=== PATIENT | male | born 1965 | race African-American/Black ===

== ENCOUNTER 2016-12-09 20:56 | Inpatient (IN) ==
--- NOTE | 2016-12-09 21:25 | EKG Report ---
Test Performed on : 12/09/2016 9:23:24 PM Test Reason : left rib/chest pain Blood Pressure : / mmHG Vent. Rate : 100 BPM Atrial Rate : 100 BPM P-R Int : 168 ms QRS Dur : 080 ms QT Int : 338 ms P-R-T Axes : 029 -38 025 degrees QTc Int : 436 ms Normal sinus rhythm. Left axis deviation Septal infarct , age undetermined Abnormal ECG When compared with ECG of 05-FEB-2010 09:37, Vent. rate has increased BY 38 BPM Septal infarct is now present Nonspecific T wave abnormality no longer evident in Lateral leads Unconfirmed Result
[2016-12-09 22:09] LABS: MANUAL DIFF NEEDED? NO
[2016-12-09 22:13] LABS: BASO% 0.2 % (0.0-0.8); EOS# 0.15 X1000 (0.0-0.7); EOS% 1.8 % (0.0-10.0); HEMATOCRIT 42.4 % (42.0-52.0); HEMOGLOBIN 14.2 g/dL (14.0-18.0); IMM GRAN# 0.01 X1000 (0.0-0.04); IMM GRAN% 0.1 % (0.0-0.5); LYMPH# 1.57 X1000 (1.2-3.4); LYMPH% 18.8 % (20.5-51.1); MCH 28.5 PG (27-31); MCHC 33.5 g/dL (33-37); MONO# 1.12 X1000 (0.11-0.59); MONO% 13.4 % (1.7-9.3); MPV 9.8 FL (7.4-10.4); NEUT% 65.7 % (42.2-75.2); PLT 163 X1000 (130-400); RBC 4.99 XMIL (4.7-6.1)
--- NOTE | 2016-12-09 22:14 | Diag Imaging Result Doc PS360 ---
EXAM: CHEST-2 VIEWS HISTORY: cough TECHNIQUE: Two views COMPARISON: 08/05/2014 FINDINGS: There are increased markings in the right base. The heart is not enlarged. The vessels are not distended. No pleural effusions. There Is a granuloma in the mid right lung. IMPRESSION: Atelectasis versus a tiny infiltrate in the right base. Electronically signed by Mihai Sauer 12/09/2016 10:11 PM
[2016-12-09 22:51] LABS: AMYLASE 106 U/L (20-200); LIPASE 50 U/L (13-60)
[2016-12-09 23:04] LABS: CK INDEX 0.5 (0.0-2.5); CK-MB 2.66 ng/mL (0.0-5.0)
[2016-12-09 23:25] LABS: ALBUMIN 4.5 g/dL (3.5-5.0); CALCIUM 8.3 mg/dL (8.8-10.2); POTASSIUM 3.6 mmol/L (3.5-5.1); TOTAL BILIRUBIN 0.5 mg/dL (0.20-1.00); TOTAL PROTEIN 7.5 g/dL (6.3-8.3)
[2016-12-09] MEDS ORDERED: TORADOL ONE (23:57)
[2016-12-09] MEDS ORDERED: TORADOL IV ONE (23:57)
[2016-12-10] MEDS ORDERED: NS 1,000 ML IV ONE (00:03)
--- NOTE | 2016-12-10 00:07 | Diag Imaging Result Doc PS360 ---
EXAM: ANGIOGRAM/PULMONARY ARTERIES HISTORY: chest pain TECHNIQUE: COMPARISON: None. FINDINGS: There are filling defects within the right upper lobe arterial branches in addition to the left main pulmonary artery and left upper and lower lobe pulmonary arterial branches. No cardiomegaly. No thoracic aortic aneurysm or dissection. Trace left pleural fluid. No right pleural fluid. There are scattered calcified granuloma and there are calcified mediastinal and hilar lymph nodes. Mild increased markings in the lower lungs believed to be atelectasis. No consolidation. Bullae in the apices. IMPRESSION: 1.Pulmonary emboli 2.Trace left pleural fluid 3.There is evidence of a prior granulomatous infection 4.Dr. Pearson was called to the emergency room with preliminary results. Electronically signed by Mihai Sauer 12/10/2016 12:04 AM
--- NOTE | 2016-12-10 00:14 | PROVIDER DOCUMENTATION ---
This chart was entered by Alexa Foreman Scribe, acting as scribe for John Pearson MD. HPI-Musculoskeletal Pain/Inj - GENERAL Chief Complaint: Rib Pain Stated Complaint: SIDE PAIN Time Seen by Provider: 12/09/16 21:28 Source: patient - HX OF PRESENT ILLNESS-MUSKULOSKELTAL Nature of Presenting Problem: 51 year old M presents to the ED with a cc of left rib pain with an onset of yesterday. Pt denies injury. Quality of Pain: reports: aching Severity in ED: mild Onset/Duration: 24 hours ago Timing: still present Modifying Factors: worse with: movement, other (breathing) Any recent injury?: No Locality of Occurance: Home Similar Symptoms Previously?: No Recently seen or treated by another doctor?: No - TRUNK INJURY Location of Injury(s)/Pain: reports: ribs Context / Method of Injury: reports: none Associated Symptoms: reports: pain with breathing Review of Systems - Adult - REVIEW OF SYSTEMS - ADULT Constitutional: denies: chills, fever Eyes: reports: no symptoms reported Ears, Nose, Mouth & Throat: reports: no symptoms reported Cardiovascular: reports: no symptoms reported Respiratory: denies: cough, shortness of breath Gastrointestinal: denies: nausea, vomiting Genitourinary: reports: no symptoms reported Musculoskeletal: reports: bone pain (left ribs). denies: muscle aches, muscle weakness Integumentary: denies: skin sores/ulcer, skin thickening Neurological: reports: no symptoms reported Psychiatric: reports: no symptoms reported Endocrine: reports: no symptoms reported Hematologic/Lymphatic: reports: no symptoms reported Allergic/Immunologic: reports: no symptoms reported All Other Systems: Reviewed and Negative Past History - Adult - PAST MEDICAL HISTORY-ADULT Review of Records: reports: Nursing Assessment Review, Medications Reviewed Major Childhood Illnesses: reports: denies history Cardiovascular: reports: denies history Respiratory: reports: denies history Gastrointestinal: reports: denies history Obstetrical/Gynecological: reports: denies history Genitourinary: reports: denies history Musculoskeletal: reports: other (Gout) Neurological: reports: denies history Endocrine/Immune: reports: denies history Other Conditions: reports: denies history - PRIOR SURGERIES/PROCEDURES Surgical/Procedure History: reports: none - IMMUNIZATION STATUS Childhood Immunizations: See Nurse Assessment Flu Vaccine: See Nurse Assessment - FAMILY HISTORY Family History: reviewed, not pertinent - SOCIAL HISTORY Smoking: non-smoker Substance Use: none/never Alcohol Use Frequency: never Physical Exam-Injury Related - Physical Exam-Injury Related Initial Vital Signs Reviewed: Yes General Appearance: appears well, alert, no apparent distress Respiratory: rib tenderness (left lateral ribs with guarding) Cardiovascular: normal peripheral pulses, regular rate, rhythm, no edema Abdominal Exam: non tender, soft Back Exam: CVA tenderness (left) Extremity: normal inspection Integumentary: normal color, warm/dry Psych/Mental Status: normal mood/affect, normal thought content, normal thought process, oriented x 3 Progress - PLAN OF CARE/RESULTS Progress/Plan/Lab Results: Vital Signs - 8 hr 12/09/16 21:11 12/10/16 00:08 Temperature 99.7 F H Pulse Rate 98 H 86 Respiratory Rate 20 22 Blood Pressure 151/79 141/87 O2 Sat by Pulse Oximetry 98 97 Laboratory Results - last 24 hr 12/09/16 12/09/16 12/09/16 22:02 22:02 22:02 WBC 8.37 RBC 4.99 Hgb 14.2 Hct 42.4 MCV 85.0 MCH 28.5 MCHC 33.5 RDW Std Deviation 13.4 Plt Count 163 MPV 9.8 Immature Gran % (Auto) 0.1 Neut % (Auto) 65.7 Lymph % (Auto) 18.8 L [place] % (Auto) 13.4 H Eos % (Auto) 1.8 Baso % (Auto) 0.2 Immature Gran # (Auto) 0.01 Neut # (Auto) 5.50 Lymph # (Auto) 1.57 [place] # (Auto) 1.12 H Eos # (Auto) 0.15 Baso # (Auto) 0.02 D-Dimer 2.44 H Sodium Potassium Chloride Carbon Dioxide Anion Gap BUN Creatinine Estimated GFR/1.73 m2 BUN/Creatinine Ratio Glucose Calculated Osmolality Calcium Total Bilirubin AST ALT Alkaline Phosphatase Creatine Kinase 509 H Creatine Kinase Index 0.5 CK-MB (CK-2) 2.66 Troponin T Total Protein Albumin Globulin Albumin/Globulin Ratio Amylase Lipase 12/09/16 12/09/16 12/09/16 22:02 22:02 22:02 WBC RBC Hgb Hct MCV MCH MCHC RDW Std Deviation Plt Count MPV Immature Gran % (Auto) Neut % (Auto) Lymph % (Auto) [place] % (Auto) Eos % (Auto) Baso % (Auto) Immature Gran # (Auto) Neut # (Auto) Lymph # (Auto) [place] # (Auto) Eos # (Auto) Baso # (Auto) D-Dimer Sodium 138 Potassium 3.6 Chloride 98 Carbon Dioxide 24 L Anion Gap 16 BUN 12 Creatinine 1.3 H Estimated GFR/1.73 m2 58 BUN/Creatinine Ratio 9 Glucose 106 H Calculated Osmolality 276 Calcium 8.3 L Total Bilirubin 0.50 AST 18 ALT 12 Alkaline Phosphatase 119 Creatine Kinase Creatine Kinase Index CK-MB (CK-2) Troponin T < 0.010 Total Protein 7.5 Albumin 4.5 Globulin 3.0 Albumin/Globulin Ratio 2.0 Amylase 106 Lipase 50 Orders Category Date Time Status Admit - [facility] Routine AdmDCTranf 12/10/16 00:03 Ordered Activity - Strict Bedrest ORDERED Care 12/10/16 00:03 Active Vital Signs Order Q 4-HR ASSESS Care 12/10/16 00:03 Active Z-Document. for Tele Applied ORDERED Care 12/10/16 00:06 Active Regular Diet Diet 12/10/16 00:06 Active ANGIOGRAM/PULMONARY ARTERIES [CT] Stat Exams 12/09/16 22:54 Completed CHEST-2 VIEWS [RAD] Stat Exams 12/09/16 21:39 Completed AMYLASE [CHEM] Stat Lab 12/09/16 22:02 Completed CBC WITH DIFF [HEME] Stat Lab 12/09/16 22:02 Completed CK PROFILE [SP CHEM] Stat Lab 12/09/16 22:02 Completed CMP [COMPREHENSIVE METABOLIC PANEL] [CHEM] Stat Lab 12/09/16 22:[address] D-DIMER [address] [COAG] Stat Lab 12/09/16 22:02 Completed LIPASE [CHEM] Stat Lab 12/09/16 22:02 Completed TROPONIN T Stat Lab 12/09/16 22:02 Completed 0.9% Sodium Chloride Inj [Ns] 1,000 ml Med 12/10/16 00:03 Active IV 125 mls/hr Acetaminophen with Codeine [Tylenol with Codeine #3] Med 12/10/16 02:00 Ordered 1 each PO Q6HR Ketorolac [Toradol] Med 12/09/16 23:57 Discontinued 30 mg .ROUTE .STK-MED ONE Ketorolac [Toradol] Med 12/09/16 23:57 Discontinued 30 mg IV NOW ONE Oxygen Device Routine Oth 12/10/16 00:05 Active Telemetry [OM.EQ] Routine Oth 12/10/16 00:03 Active EKG [EKG] Stat Ther 12/09/16 21:18 Draft Transfer/Admit Order [TRANSFER] Routine Transfer 12/10/16 00:11 Ordered Result Diagrams: 12/09/16 22:02 12/09/16 22:02 - EKG 1 Time of EKG reading by physician:: 21:23 EKG Read and Signed by:: John Pearson EKG Interpretation (*Must complete 3 of following elements*): Abnormal Rate: 100 Rhythm: NSR [place]: left - XRAY 1 XRAY Study: Chest Impression: Normal XRAY Interpretation: negative: Dr. Pearson(ER MD) Departure - Departure Date of Disposition Decision: 12/10/16 Time of Disposition Decision: 00:13 DIAGNOSIS: Pulmonary emboli Qualifiers: Pulmonary embolism type: other Chronicity: acute Acute cor pulmonale presence: without acute cor pulmonale Qualified Code(s): I26.99 - Other pulmonary embolism without acute cor pulmonale Disposition: ADMITTED INPATIENT 09 Certified Medical Emergency: Emergent Condition: Stable Referrals and Follow-Ups: None,PCP [Primary Care Provider] - - Critical Care Note This patient required my direct & personal management of CC.: No This chart was documented by the indicated scribe, (Alexa Foreman, Papi) and accurately reflects the services I performed and decisions made by me, John Pearson MD, as attested by the provider's signature.
[2016-12-10] MEDS ORDERED: TYLENOL WITH CODEINE #3 PO SCH (00:15)
[2016-12-10] MEDS ORDERED: TYLENOL WITH CODEINE #3 PO PRN (00:20)
[2016-12-10] MEDS ORDERED: LOVENOX ONE (00:50)
[2016-12-10] MEDS ORDERED: LOVENOX 1 MG/KG SUBQ ONE (01:07)
[2016-12-10] MEDS ORDERED: NS 1,000 ML ONE (01:10)
[2016-12-10] MEDS ORDERED: LOVENOX SUBQ SCH (09:00)
--- NOTE | 2016-12-10 09:32 | Extremity Venous Study ---
EXAM: Venous U/S Bilateral Legs HISTORY: pe TECHNIQUE: COMPARISON: None. FINDINGS: Right: There is occlusive thrombus in the distal right superficial femoral vein, popliteal vein, peroneal veins. Left: There is normal flow and compressibility of the veins of the left lower extremity. No thrombus. Normal augmentation. IMPRESSION: Occlusive thrombus in the deep veins of the right lower extremity. A preliminary report was given to . Electronically signed by Mihai Sauer 12/10/2016 9:30 AM
[2016-12-10] MEDS: TYLENOL WITH CODEINE #3 PO PRN ×2 (10:54→16:23)
[2016-12-10] MEDS: XARELTO PO SCH (16:20)
--- NOTE | 2016-12-10 16:25 | HISTORY AND PHYSICAL ---
CHIEF COMPLAINT: Left-sided rib pain radiating to his left shoulder. Shortness of breath. HISTORY OF PRESENT ILLNESS: This is a 51-year-old gentleman with a history of gout. He presents presented to the emergency room complaining of about 24 hours of left rib pain that radiated into his left shoulder. It was increased with movement and inspiration. He did have shortness of breath with activity. He denied any recent injury. He was found to have a D- dimer of 2.4 with a creatinine of 1.3. CTA pulmonary was performed and it revealed right upper lobe pulmonary emboli and left main pulmonary artery and left upper and lower pulmonary arterial branch pulmonary emboli. He was given Lovenox 1 mg/kg along with IV hydration and he was admitted for further evaluation and treatment. PAST MEDICAL HISTORY: Gout and bone spurs. PAST SURGICAL HISTORY: Denies. SOCIAL HISTORY: Denies alcohol, tobacco, or illicit drug use. ALLERGIES: No known drug allergies. HOME MEDICATIONS: Denies. REVIEW OF SYSTEMS: A 14 point review of systems is discussed with patient with pertinent positives stated in the HPI. He denied any chest pressure, syncope, dizziness, any productive cough, fever, chills, orthopnea, nausea, vomiting, diarrhea, constipation, black or bloody vomitus, black or bloody stools, hematuria, dysuria, frequency, urgency. PHYSICAL EXAMINATION: GENERAL: This is a 51-year-old gentleman, who is lying in the bed, in no distress. VITAL SIGNS: Blood pressure is 124/71 with a heart rate of 61, respirations are 20, temperature is 98 degrees with O2 saturations of 100% on 2 L nasal cannula. CARDIOVASCULAR: Regular rate and rhythm S1, S2 appreciated. PULMONARY: Breath sounds are clear. No increased work of breathing noted. GASTROINTESTINAL: Abdomen is soft, nontender, nondistended with bowel sounds in all 4 quadrants. BACK: No CVAT. No spine tenderness. MUSCULOSKELETAL: Good range of motion of joints. NEUROLOGIC: He is alert and oriented x3. Cranial nerves 2-12 grossly intact. EXTREMITIES: No clubbing, cyanosis, or edema. Calves are nontender. Pulses are palpable x4. DIAGNOSTICS: WBC is 8.3 with a hemoglobin of 14.2, hematocrit 42.4, platelets of 163,000. D- dimer is 2.44, sodium is 138, potassium 3.6. BUN is 12, creatinine 1.3 with a glucose of 106. Lower extremity Doppler revealed occlusive thrombus in the deep veins of the right lower extremity. Pulmonary arteriogram revealed bilateral pulmonary emboli with the left main pulmonary artery as well as left upper and lower pulmonary artery branches. ASSESSMENT AND PLAN: 1. Bilateral pulmonary embolus. 2. Occlusive deep venous thrombosis right lower extremity. 3. Acute kidney injury. 4. Chest pain and shortness of breath secondary to #1. PLAN: He will be admitted to the hospital. Placed on telemetry. Hypercoagulability labs have been drawn. He was given a mg/kg of Lovenox. We will have social media content specialist check into assistance for Xarelto or Eliquis as he has not started his insurance at his place of employment yet. We will monitor vital signs and follow. We will give gentle hydration and will check a basic metabolic panel in the morning to evaluate for creatinine. Further treatments pending hospital course. Dictated by TRIXIE Cornell for Ben Quintero MD cc: TRIXIE Cornell MD
[2016-12-11] MEDS: TYLENOL WITH CODEINE #3 PO PRN ×2 (00:13→17:07)
[2016-12-11] MEDS: XARELTO PO SCH ×2 (08:53→17:10)
--- NOTE | 2016-12-11 09:18 | PROGRESS NOTE ---
DATE: 12/11/2016 SUBJECTIVE: The patient notes that he is feeling a little bit better, still having some nausea when he eats. Still having some burning when he swallows. Having pain on the left side of his chest when he moves or takes a deep breath. Denies any other fevers or chills. OBJECTIVE/PHYSICAL EXAMINATION: Vital signs: Stable. General: He is awake, alert, oriented. He is in no respiratory distress, pleasant to talk with. Neck: Supple. CV: Regular rate. Chest: Relatively clear. Abdomen: Soft. Extremities: He moves all extremities. Neurological: No focal changes. Skin: Warm and dry, no rashes. ASSESSMENT: 1. Bilateral pulmonary emboli. 2. Occlusive deep venous thrombosis in the right lower extremity. 3. Chest pain and shortness of breath secondary to his pulmonary emboli. PLAN: Will continue patient on Xarelto. He is to call his company to make sure that he is going to get insurance. He has a free month of Xarelto and expects that he will have insurance the 26 of December. If this is the case, we will discharge him home on Xarelto twice a day for 21 days and then change to 20 mg once a day for the next 6 months until he follows up again. Discussed with patient, however, during this process, if for some reason he loses his insurance or Xarelto becomes unaffordable, then he will need to immediately follow up with his primary care or go back to the emergency department to get transitioned over to Coumadin. Discussed with patient the perils of not being on any anticoagulation during the treatment process for his pulmonary emboli and DVT. cc: Ben Quintero MD
--- NOTE | 2016-12-11 19:50 | DISCHARGE SUMMARY ---
ADMISSION DATE: 12/10/2016 DISCHARGE DATE: 12/11/2016 DIAGNOSES: 1. Bilateral pulmonary embolus. 2. Occlusive deep vein thrombosis in right lower extremity. 3. Chest pain and shortness of breath secondary to pulmonary emboli. DIAGNOSTICS: 1. 12/09/2016: Chest x-ray revealed atelectasis versus a tiny infiltrate in the right base. 2. Pulmonary arteriogram revealed pulmonary emboli in the right upper lobe, arterial branches in addition to the left main pulmonary artery, left upper and lower lobe pulmonary arterial branches. No cardiomegaly. No thoracic aortic aneurysm or dissection. Trace left pleural fluid. No right pleural fluid. No consolidation. 3. Bilateral lower extremity venous Doppler revealed occlusive thrombus in the deep veins of the right lower extremity. No thrombus in the left lower extremity. HOSPITAL COURSE: Mr. Bess presented to the emergency room complaining of left-sided rib pain that radiated to his shoulder. He was found to have bilateral pulmonary emboli. He was started on Lovenox 1 mg/kg and transitioned over to Xarelto 15 mg b.i.d. He has had intermittent shortness of breath with some left-sided chest pain when he moves or takes a deep breath. He denied any cough, fever or chills. PHYSICAL EXAMINATION: Cardiovascular: Regular rate and rhythm. S1, S2 are appreciated. Pulmonary: Breath sounds are clear. No increased work of breathing noted. Gastrointestinal: Abdomen is soft, nontender, nondistended with bowel sounds in all 4 quadrants. Extremities: No clubbing, cyanosis, or edema. Calves are nontender. Pulses are palpable x4. Skin: Warm and dry. No rashes or lesions noted. DISCHARGE MEDICATIONS: Xarelto 15 mg 1 p.o. b.i.d. for 21 days and then Xarelto 20 mg daily. The patient is in transition at a new job waiting on insurance to begin. Educational Therapy Teacher did arrange a free month of Xarelto. He did speak with Human Resources at his place of employment who felt that they could get his insurance started by December. In the meantime the patient has spoken to Xarelto patient assistance and they felt that he should be able to qualify for a year of Xarelto. They are in the process of sending paperwork for the patient to fill out. Myself and Dr. Quintero did discuss with the patient that it is imperative that he stays on anticoagulation and he will have 30 days of Xarelto. He was given a prescription for 20 mg daily and he was instructed if there is any delay in getting Xarelto he needs to immediately follow up with his primary care physician or return to the emergency room to get transitioned over to Coumadin. It was discussed with the patient the perils of not being on anticoagulation during this process including, but not limited to, further pulmonary embolus, DVT, stroke, heart attack, and . He did state understanding. FOLLOWUP: Dr Quintero in 1-2 weeks he was instructed to come to the emergency room if there was any delay or for any increasing chest pain, shortness of breath, PND, orthopnea, fever, chills, or any questions or concerns that he may have. DISPOSITION: He is being discharged home in stable condition with family members. TIME SPENT: This is a greater than 30 minute discharge. Dictated by TRIXIE Cornell for Ben Quintero MD cc: TRIXIE Cornell MD [facility]
[2016-12-11] MEDS ORDERED: DUONEB (A & A) INH PRN (20:42)
[2016-12-11] MEDS ORDERED: NS 1,000 ML IV SCH (20:43)
[2016-12-11] MEDS ORDERED: ROCEPHIN 1 GM/NS 1 GM/50 ML IVPB IV SCH (20:45)
--- NOTE | 2016-12-11 22:03 | Diag Imaging Result Doc PS360 ---
EXAM: CHEST-2 VIEWS INDICATION: SOB, PE TECHNIQUE: 2 views COMPARISON: 12/09/2016 FINDINGS: The increased markings at the right lung base are stable suggesting atelectasis and/or infiltrate. There is probably also now mild atelectasis at the left lung base. No other new consolidation is appreciated. Cardiac silhouette is stable. IMPRESSION: Stable mild atelectasis and/or infiltrate at the right lung base and suggestion of mild atelectasis that has developed at the left lung base during the interval. Electronically signed by Miguel Burnham 12/11/2016 10:00 PM
[2016-12-11] MEDS: DUONEB (A & A) INH SCH (23:14)
[2016-12-12] MEDS: DUONEB (A & A) INH SCH ×4 (02:42→14:43)
[2016-12-12 06:05] LABS: HEMATOCRIT 42.3 % (42.0-52.0); HEMOGLOBIN 14.2 g/dL (14.0-18.0); MCH 28.6 PG (27-31); MCHC 33.6 g/dL (33-37); MCV 85.3 FL (81-99); RBC 4.96 XMIL (4.7-6.1)
[2016-12-12 06:46] LABS: AGAP 13; ALBUMIN 3.6 g/dL (3.5-5.0); ALKALINE PHOSPHATASE 97 U/L (32-122); BUN 12 mg/dL (8-22); CHLORIDE 100 mmol/L (98-107); COSMO 278; GOT 12 U/L (10-34); GPT 9 U/L (10-44); POTASSIUM 3.5 mmol/L (3.5-5.1); SODIUM 139 mmol/L (136-145); TCO2 26 mmol/L (25-35); TOTAL PROTEIN 7.2 g/dL (6.3-8.3)
[2016-12-12] MEDS: XARELTO PO SCH (09:08)
--- NOTE | 2016-12-12 10:59 | PROGRESS NOTE ---
DATE: 12/12/2016 SUBJECTIVE: The patient notes that he is feeling a little bit better this morning. Late in the evening yesterday, his shortness of breath improved, and he was able to ambulate up and down the parker. He notes that his chest wall pain when breathing is improved. OBJECTIVE: Vital signs reviewed. He is awake, alert, oriented. He is currently in no respiratory distress. Temperature 98 degrees, pulse 65, respiratory 20, BP 139/78. General: The patient is awake, alert, oriented. He is currently in no respiratory distress. Neck supple. CV: Regular rate. Chest: Equal breath sounds bilaterally. He does have some pain with deep inspiration. Abdomen soft. Extremities: Moves all extremities. Neurologic: No changes. LABORATORY DATA: Normal. Anticoagulation labs are still pending. ASSESSMENT: 1. Pulmonary embolus. The patient currently is on Xarelto. He was able to find that yesterday the does have insurance. 2. Chest pain secondary to pulmonary embolus. 3. Acute renal failure, resolved. PLAN: We will discharge the patient home. He will continue Xarelto 15 mg twice a day for 21 days and then transition over to 20 mg once a day. cc: Ben Quintero MD
[2016-12-12 15:45] VITALS: BP 146/71
== END 2016-12-12 16:00 | disposition home or self-care (01) ==
LOC: P.ED 20:56 → P.MEDSURG 12-10 01:22
PROVIDERS: ATTEND Family Medicine